=== PATIENT | male | born 1980 | race Caucasian/White ===

== ENCOUNTER 2017-07-22 07:45 | Emergency (ER) | payer OTHER ==
[~2017-07-22] VITALS: Ht 190.5 cm; Wt 77.4 kg
[~2017-07-22 07:45] MED LIST: CELEXA; CELEXA40 MG PO; CLONAZEPAM0.25 MG PO; CLONAZEPAM1 MG PO; OXCARBAZEPINE300 MG PO; RELAFEN750 MG PO; REMERON15 M2 PO; SUBOXONE 8 M1 TABLET SL; SUBOXONE 8 MG-1 EAC2 SL; TRAZODONE HCL50 MG PO; VENLAFAXINE H37.5 M3 PO; XANAX1 MG PO
[2017-07-22 07:47] VITALS: BP 136/83
== END 2017-07-22 08:33 | disposition home or self-care (01) ==
LOC: EME 07:45
PROC: 0HQGXZZ Repair Left Hand Skin, External Approach (ICD-10-PCS; principal; 2017-07-22)
DX: S61.211A Laceration without foreign body of left index finger without damage to nail, initial encounter (principal); W26.0XXA Contact with knife, initial encounter; Y92.009 Unspecified place in unspecified non-institutional (private) residence as the place of occurrence of the external cause; F32.9 Major depressive disorder, single episode, unspecified; F41.9 Anxiety disorder, unspecified; Z87.891 Personal history of nicotine dependence
CPT/HCPCS: 99281; 99284

== ENCOUNTER 2017-09-11 07:32 | Emergency (ER) | payer OTHER ==
[~2017-09-11] VITALS: Ht 190.5 cm; Wt 78.1 kg
[2017-09-11 07:47] VITALS: BP 128/83
[2017-09-11] MEDS ORDERED: TOBREX5 ML LEFT EYE (08:16)
== END 2017-09-11 08:35 | disposition home or self-care (01) ==
LOC: EME 07:32
DX: H57.12 Ocular pain, left eye (principal); H10.9 Unspecified conjunctivitis; Z87.891 Personal history of nicotine dependence; F32.9 Major depressive disorder, single episode, unspecified; F41.9 Anxiety disorder, unspecified
CPT/HCPCS: 99281; 99284